=== PATIENT | male | born 2005 | race Caucasian/White ===

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

== ENCOUNTER 2024-12-08 20:38 | Emergency (ER) | payer OTHER ==
[~2024-12-08] VITALS: Ht 177.8 cm; Wt 80.3 kg
[2024-12-08 21:04] VITALS: BP 120/89
[2024-12-08 21:38] LABS: BASOPHILS ABSOLUTE AUTO 0.05 K/mm3 (0.00-0.23); BASOPHILS PERCENT AUTO 1 % (0-2); EOSINOPHILS ABSOLUTE AUTO 0.09 K/mm3 (0.00-0.68); EOSINOPHILS PERCENT AUTO 1 % (0-6); Hematocrit 47.1 % (37.0-53.0); Hemoglobin 16.3 g/dL (13.5-17.5); IMMATURE GRAN ABSOLUTE AUTO 0.01 K/mm3 (0.00-0.10); IMMATURE GRAN PERCENT AUTO 0 % (0-1); LYMPHOCYTES ABSOLUTE AUTO 2.11 K/mm3 (0.84-5.20); LYMPHOCYTES PERCENT AUTO 34 % (21-46); MONOCYTES ABSOLUTE AUTO 1.04 K/mm3 (0.16-1.47); MONOCYTES PERCENT AUTO 17 % (4-13); Mean Corpuscular HGB 29.4 pg (26.0-34.0); Mean Corpuscular HGB Conc 34.6 g/dL (31.5-36.5); Mean Corpuscular Volume 85 fL (80-100); Mean Platelet Volume 10.7 fL (9.1-12.4); NEUTROPHILS ABSOLUTE AUTO 2.92 K/mm3 (1.96-9.15); NEUTROPHILS PERCENT AUTO 47 % (41-73); Platelet Count 323 K/mm3 (150-400); RDW Coefficient Variation 12.9 % (11.7-14.2); RDW Standard Deviation 40.5 fL (35.1-46.3); Red Blood Cell Count 5.55 M/mm3 (4.30-5.90); White Blood Cell Count 6.22 K/mm3 (4.00-11.30)
[2024-12-08 21:54] LABS: Albumin, Blood 3.8 g/dL (3.4-5.0); Albumin/Globulin Ratio 1.1 (0.8-1.8); Bilirubin, Total 0.2 mg/dL (0.1-1.0); Calcium, Blood 9.1 mg/dL (8.5-10.1); Globulin, Blood 3.4 g/dL (2.2-4.0); Potassium, Blood 3.9 mmol/L (3.5-5.5); Total Protein, Blood 7.2 g/dL (6.4-8.2)
[2024-12-09] MEDS ORDERED: Ondansetron HCl 2 MG / ML 2ML Vial IV ONE (00:05)
[2024-12-09] MEDS ORDERED: Ketorolac Tromethamine 15mg Vial IV ONE (00:05)
[2024-12-09] MEDS ORDERED: NS 1,000 ML IV SCH (00:05)
[2024-12-09] MEDS ORDERED: Morphine Sulfate 4 MG/1 ML Injection IV ONE (00:15)
[2024-12-09] MEDS ORDERED: Pantoprazole Sodium 40 MG Injection IV ONE (00:15)
[2024-12-09] MEDS ORDERED: Mag Hydrox/AL Hydrox/Simeth 30 ML UDC PO ONE (00:20)
[2024-12-09] MEDS ORDERED: RX Prepack 2 Tabs Ondansetron ODT 4MG UD ONE (01:05)
[2024-12-09] MEDS ORDERED: OMEP20ER PO (01:09)
[2024-12-09] MEDS ORDERED: ONDA4 PO (01:09)
[2024-12-09] MEDS ORDERED: DICY20 PO (09:21)
[2024-12-09] MEDS ORDERED: PROM12.5S PR (09:21)
== END 2024-12-09 01:22 | disposition home or self-care (01) ==
LOC: ER 20:38
PROVIDERS: Student in an Organized Health Care Education/Training Program
DX: K52.9 Noninfective gastroenteritis and colitis, unspecified (principal); K27.9 Peptic ulcer, site unspecified, unspecified as acute or chronic, without hemorrhage or perforation; Z79.51 Long term (current) use of inhaled steroids; Z79.899 Other long term (current) drug therapy
CPT/HCPCS: 74177; 80053; 83690; 85025; 96374-59; 96375; 99284-25; A9270; J1885; J2405; J2470; J7030; Q9967

== ENCOUNTER 2024-12-09 04:15 | Emergency (ER) | payer OTHER ==
[~2024-12-09] VITALS: Ht 177.8 cm; Wt 80.3 kg
[~2024-12-09 04:15] MED LIST changes: +OMEP20ER PO; +ONDA4 PO
[2024-12-09] MEDS ORDERED: Mag Hydrox/AL Hydrox/Simeth 30 ML UDC PO ONE (06:15)
[2024-12-09] MEDS ORDERED: Famotidine 20 MG Tab PO ONE (06:15)
[2024-12-09] MEDS ORDERED: Ondansetron 4 MG SoluTab SL ONE (06:15)
[2024-12-09] MEDS ORDERED: Dicyclomine HCl 20 MG Tab PO ONE (06:40)
[2024-12-09] MEDS ORDERED: Ibuprofen 400 MG Tab PO ONE (06:40)
[2024-12-09] MEDS ORDERED: DICY20 PO (09:21)
[2024-12-09] MEDS ORDERED: PROM12.5S PR (09:21)
[2024-12-09 10:09] VITALS: BP 103/63
== END 2024-12-09 10:10 | disposition home or self-care (01) ==
LOC: ER 04:15
DX: A08.4 Viral intestinal infection, unspecified (principal); Z79.2 Long term (current) use of antibiotics; Z79.899 Other long term (current) drug therapy
CPT/HCPCS: 93005; 93010; 99284-25; A9270